=== PATIENT | female | born 1995 | race Caucasian/White ===

== ENCOUNTER 2019-11-12 18:41 | Emergency (ER) | payer OTHER ==
[2019-11-12 18:55] VITALS: BP 125/80; PULSE 77; TEMP 98.3; BMI 25.2
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
== END 2019-11-12 20:00 | disposition home or self-care (01) ==
LOC: JERFT 18:41
DX: G44.319 Acute post-traumatic headache, not intractable (principal); W20.8XXA Other cause of strike by thrown, projected or falling object, initial encounter; Y93.89 Activity, other specified; Y92.511 Restaurant or cafe as the place of occurrence of the external cause; Y99.8 Other external cause status; Z88.6 Allergy status to analgesic agent
CPT/HCPCS: 99281-25

== ENCOUNTER 2021-10-11 12:10 | Emergency (ER) | payer OTHER ==
[2021-10-11 12:56] VITALS: BP 98/67; PULSE 92; TEMP 98.2; BMI 21.9
== END 2021-10-11 15:23 | disposition home or self-care (01) ==
LOC: JER 12:10
DX: J06.9 Acute upper respiratory infection, unspecified (principal)
CPT/HCPCS: 87804; 99283-25; C9803; U0003; U0005